=== PATIENT | male | born 1965 | race Caucasian/White ===

== ENCOUNTER 2024-09-01 09:11 | Emergency (ER) | payer OTHER, SELFPAY ==
[2024-09-01] VITALS (10 sets, daily range): BP systolic 142–176; BP diastolic 71–104; PULSE 87–110; RESP 12–29; TEMP 37.1; O2SAT 91–96; BMI 28.8
--- NOTE | 2024-09-01 09:21 | EKG_ITS ---
[address] [address] Test Date: 2024-09-01 Pat Name: Luis Celestin Department: Room: Gender: Male [employer] Mechanic: GEORGE : 1965 Requested By: Order Number: [id number] Reading MD: Junito Horowitz Measurements Intervals [place] Rate: 106 P: 80 RI: 146 QRS: -86 QRSD: 84 T: 76 QT: 330 QTc: 438 Interpretive Statements Sinus tachycardia Left axis deviation Pulmonary disease pattern Electronically Signed On 09-02-2024 7:20:38 PST by Junito Horowitz
--- NOTE | 2024-09-01 09:25 | DI.RAD.S_ITS ---
PROCEDURE: XR CHEST 1V INDICATIONS: dyspnea TECHNIQUE: One view of the chest was acquired. COMPARISON: None. FINDINGS AND IMPRESSION: No consolidation or pleural effusion on this single view study. Normal heart size. Possible small hernia projecting over the medial left hemidiaphragm. Degenerative osseous changes. Dictated by: Darian Francis M.D. on 09/01/2024 at 9:38 Approved by: Darian Francis M.D. on 09/01/2024 at 9:39
[2024-09-01] MEDS: ALBUTEROL/IPRATROPIUM 3 ML AMPUL INH (09:28)
[2024-09-01] MEDS: ALBUTEROL 2.5 MG/3 ML NEB (ADULT) INH ×2 (09:28→10:45)
[2024-09-01 09:39] LABS: Base Excess VBG 1.5 mmol/L (0-4); HCO3 VBG 29 mmol/L (24-28); Oxygen Saturation VBG 68 % (70-75); PCO2 VBG 53.3 mmHg (45-50); PO2 VBG 38 mmHg (35-45); Total CO2 VBG 28 mmol/L (24-29); pH VBG 7.34 (7.33-7.43)
[2024-09-01 09:41] LABS: Add Manual Diff / Slide Review NO; Basophils Absolute Auto 0 /uL (0-100); Basophils Percent Auto 0.6 % (0-2); Eosinophils Absolute Auto 0 /uL (0-450); Eosinophils Percent Auto 0.7 % (2-4); Hematocrit 46.5 % (41-53); Hemoglobin 15.8 g/dL (13.5-17.5); Lymphocytes Absolute Auto 800 /uL (1100-4500); Lymphocytes Percent Auto 18.1 % (25-40); Mean Corpuscular Hemoglobin 32.4 PG (26-34); Mean Corpuscular Volume 95.2 fL (80-100); Monocytes Absolute Auto 300 /uL (0-900); Neutrophils Absolute Auto 3400 /uL (1500-7000); Neutrophils Percent Auto 73.6 % (50-75); Platelet Count 125 X10^3/uL (150-400); Red Blood Cell Count 4.89 X10^6/uL (4.5-5.9); Red Cell Distribution Width 14.1 % (11.6-14.8); White Blood Cell Count 4.6 X10^3/uL (4.5-11.0)
[2024-09-01] MEDS: predniSONE 20 MG TABLET 60 MG PO (09:43)
[2024-09-01 09:48] LABS: Alanine Aminotransferase 105 IU/L (<50); Albumin 4.5 g/dL (3.5-5.0); Albumin Globulin Ratio 1.5 (1.0-2.8); Alkaline Phosphatase 80 U/L (38-126); Aspartate Aminotransferase 60 IU/L (17-59); BUN Creatinine Ratio 14.3 (6-22); Bilirubin Total 0.7 mg/dL (0.2-1.3); Blood Urea Nitrogen 11 mg/dL (9-20); Calcium 8.9 mg/dL (8.4-10.2); Carbon Dioxide 26 mmol/L (22-32); Chloride 99 mmol/L (98-107); Estimated Glomerular Filt Rate > 60 mL/min (>60); Globulin 3.1 g/dL (1.7-4.1); Glucose 229 mg/dL (80-110); HEMOLYSIS 17 (0-50); Potassium 4.1 mmol/L (3.4-5.1); Sodium 138 mmol/L (137-145); Total Protein 7.6 g/dL (6.3-8.2)
[2024-09-01 10:00] LABS: NT-proBNP (BNP-Adult 18+) 64 pg/mL (<125); Troponin I < 0.012 ng/mL (0.01-0.034)
--- NOTE | 2024-09-01 10:19 | ED.SOB ---
HPI - SOB/Dyspnea General Chief Complaint: Shortness of Breath/Dyspnea Stated Complaint: Shortness of Breath Time Seen by Provider: 09/01/24 09:19 Source: patient Mode of arrival: Wheelchair Limitations: no limitations History of Present Illness HPI Narrative: This 58-year-old male here with shortness of breath. He has been short of breath for 4 days getting progressively worse. He has what he describes as cramping? chest pain. He is not having fevers he has a cough with scant production of sputum. He has a history of COPD and usually has an albuterol inhaler, presently does not have access to it. [place] the [facility] [place] He has been without his regular medications as well. He has not noted any fevers. He denies any cardiac problems in the past. He has vague historian regarding his regular medications. The patient says that he has been hospitalized for breathing difficulties before but has never required intensive care unit care Related Data Previous Rx's Medication Instructions Recorded albuterol sulfate 90 mcg/actuation 2 puff inhalation Q6H PRN 09/01/24 aerosol inhaler shortness of breath or wheezing #8.5 grams prednisone 10 mg tablet 10 mg PO DIRECTED #20 tabs 09/01/24 Allergies Allergy/AdvReac Type Severity Reaction Status Date / Time bee venom protein (honey bee) Allergy Verified 09/01/24 09:42 Penicillins Allergy Verified 09/01/24 09:42 Patient History Social History Smoking Status: Former smoker Smoking Status: Former smoker Exam Narrative Exam Narrative: Alert appears dyspneic nontoxic speaking in full sentences Initial Vital Signs Initial Vital Signs: Vital Signs Temperature 98.8 F 09/01/24 09:12 Pulse Rate 106 H 09/01/24 09:12 Respiratory Rate 29 H 09/01/24 09:12 Blood Pressure 176/104 H 09/01/24 09:12 Pulse Oximetry 95 09/01/24 09:12 Oxygen Delivery Method Room Air 09/01/24 09:12 HENMT HENMT Other: Oral mucosa is moist no stridor Neck Other: No jugular venous distention Resp Other: Wheezing throughout, decreased air movement no rales Cardio Other: Regular rhythm rate no murmur or gallop Skin Other: Warm and dry Neuro Other: Alert and oriented Course Orders Ordered: ED Orders 09/01/24 09:21 EKG-12 Lead Routine 09/01/24 09:25 Chest [XR chest 1V] Stat BNP [NT-proBNP (BNP-Adult 18+)] Stat CBC Auto Diff [Complete Blood Count AUTO DIFF] Stat CMP [Comprehensive Metabolic Panel] Stat Trop I [Troponin I] Stat VBG [Venous Blood Gas] STAT 09/01/24 09:36 Respiratory Panel (Film Array) Stat Venous Blood Gas Routine Discontinued Medications Albuterol (Albuterol 2.5 Mg/3 Ml Neb (Adult)) 2.5 mg INH NOW ONE Stop: 09/01/24 09:26 Last Admin: 09/01/24 09:28 Dose: 2.5 mg Documented By: JESSICA Albuterol (Albuterol Hfa Prepack) 1 box MISC DIRECTED ONE Stop: 09/01/24 10:28 Last Admin: 09/01/24 10:43 Dose: Not Given Documented By: BISHNU Albuterol (Albuterol 2.5 Mg/3 Ml Neb (Adult)) 2.5 mg INH NOW ONE Stop: 09/01/24 10:42 Last Admin: 09/01/24 10:45 Dose: 2.5 mg Documented By: MARGARET Albuterol/Ipratropium (Albuterol/Ipratropium 3 Ml Ampul) 3 ml INH NOW ONE Stop: 09/01/24 09:26 Last Admin: 09/01/24 09:28 Dose: 3 ml Documented By: JESSICA Prednisone (Prednisone 20 Mg Tablet) 60 mg PO NOW ONE Stop: 09/01/24 09:26 Last Admin: 09/01/24 09:43 Dose: 60 mg Documented By: BISHNU Vital Signs Vital signs: Vital Signs - 8 hr 09/01/24 10:30 09/01/24 10:30 09/01/24 10:45 Pulse Rate 91 H 102 H Respiratory Rate 12 18 Blood Pressure 142/74 H Pulse Oximetry 94 93 Oxygen Delivery Method Room Air Room Air Oxygen Flow Rate 0 Fraction of Inspired Oxygen 21 09/01/24 11:00 09/01/24 11:00 Pulse Rate 87 Respiratory Rate 17 Blood Pressure 158/73 H Pulse Oximetry 93 Oxygen Delivery Method Room Air Oxygen Flow Rate Fraction of Inspired Oxygen MDM - SOB/Dyspnea Medical Records Medical records narrative: There were no old medical records to review Lab Data Lab results narrative: Normal troponin and BNP, CBC notable for mild thrombocytopenia 09/01/24 09:25 09/01/24 09:25 Labs: Lab Results 09/01/24 09/01/24 Range/Units 09:25 09:36 WBC 4.6 (4.5-11.0) X10^3/uL RBC 4.89 (4.5-5.9) X10^6/uL Hgb 15.8 (13.5-17.5) g/dL Hct 46.5 (41-53) % MCV 95.2 (80-100) fL MCH 32.4 (26-34) PG MCHC 34.0 (30-36) % RDW 14.1 (11.6-14.8) % Plt Count 125 L (150-400) X10^3/uL Neut % (Auto) 73.6 (50-75) % Lymph % (Auto) 18.1 L (25-40) % [place] % (Auto) 7.0 (3-14) % Eos % (Auto) 0.7 L (2-4) % Baso % (Auto) 0.6 (0-2) % Neut # (Auto) 3400 (4009-9459) /uL Lymph # (Auto) 800 L (8985-2198) /uL [place] # (Auto) 300 (0-900) /uL Eos # (Auto) 0 (0-450) /uL Baso # (Auto) 0 (0-100) /uL VBG pH 7.34 (7.33-7.43) VBG pCO2 53.3 H (45-50) mmHg VBG pO2 38 (35-45) mmHg VBG HCO3 29 H (24-28) mmol/L VBG Total CO2 28 (24-29) mmol/L VBG O2 Saturation 68 L (70-75) % VBG Base Excess 1.5 (0-4) mmol/L Sodium 138 (137-145) mmol/L Potassium 4.1 (3.4-5.1) mmol/L Chloride 99 (98-107) mmol/L Carbon Dioxide 26 (22-32) mmol/L BUN 11 (9-20) mg/dL Creatinine 0.77 (0.66-1.25) mg/dL Estimated GFR > 60 (>60) mL/min BUN/Creatinine Ratio 14.3 (6-22) Glucose 229 H (80-110) mg/dL Calcium 8.9 (8.4-10.2) mg/dL Total Bilirubin 0.7 (0.2-1.3) mg/dL AST 60 H (17-59) IU/L ALT 105 H (<50) IU/L Alkaline Phosphatase 80 (38-126) U/L Troponin I < 0.012 (0.01-0.034) ng/mL NT-Pro-B Natriuret Pep 64 (<125) pg/mL Total Protein 7.6 (6.3-8.2) g/dL Albumin 4.5 (3.5-5.0) g/dL Globulin 3.1 (1.7-4.1) g/dL Albumin/Globulin Ratio 1.5 (1.0-2.8) Chlamy pneumoniae PCR Not detected (Not Detect) Adenovirus (PCR) Not detected (Not Detect) B. pertussis DNA (PCR) Not detected (Not Detect) B.parapertussis DNA PCR Not detected (Not Detecte) Coronavirus OC43 (PCR) Not detected (Not Detect) Coronavirus HKU1 (PCR) Not detected (Not Detect) Coronavirus 229E (PCR) Not detected (Not Detect) SARS-CoV-2 (PCR) Not detected (Not Detecte) Coronavirus NL63 (PCR) Not detected (Not Detect) Human Metapneumovir PCR Not detected (Not Detect) Influenza Type A (PCR) Not detected (Not Detect) Influenza Type B (PCR) Not detected (Not Detect) M. pneumoniae (PCR) Not detected (Not Detect) Parainfluenza 1 (PCR) Not detected (Not Detect) Parainfluenza 2 (PCR) Not detected (Not Detect) Parainfluenza 3 (PCR) Not detected (Not Detect) Parainfluenza 4 (PCR) Not detected (Not Detect) RSV (PCR) Not detected (Not Detect) Entero/Rhino (PCR) Not detected (Not Detect) Imaging Data Chest x-ray: My Impression: Independent review of chest x-ray, no infiltrate no pneumothorax no heart failure Radiologist's Impression: [address] [place] [id number] XRay Report Signed Patient: Luis Celestin MR#: [id number] : 1965 Acct:[id number] Age/Sex: 58 / M Date of Service: 09/01/24 Loc: ED Accession Number: [id number] Procedure: XR chest 1V Ordering Provider: Froylan Leon MD PROCEDURE: XR CHEST 1V INDICATIONS: dyspnea TECHNIQUE: One view of the chest was acquired. COMPARISON: None. FINDINGS AND IMPRESSION: No consolidation or pleural effusion on this single view study. Normal heart size. Possible small hernia projecting over the medial left hemidiaphragm. Degenerative osseous changes. Dictated by: Darian Francis M.D. on 09/01/2024 at 9:38 ECG Data Interpretation: ECG shows sinus rhythm at [address] segment elevation poor R-wave progression possible old inferior infarct MDM Narrative Medical decision making narrative: 58-year-old male with a history of COPD presenting with shortness of breath. Differential diagnosis includes COPD exacerbation, pneumonia, pulmonary embolism and ischemic heart disease. Patient is wheezy improved with nebulized bronchodilators. Workup does not suggest heart failure no definite infiltrate on his chest x-ray. Started him on prednisone and provided a prescription for a rescue inhaler should he need 1 Discharge Plan Departure Patient Disposition: Home Clinical Impression: Acute exacerbation of chronic obstructive pulmonary disease (COPD) Activity Restrictions/Additional Instructions: Headache, retreated you for an exacerbation of your chronic obstructive pulmonary disease. I started you on steroids, start your prescription tomorrow as the 1st dose was given in the emergency department and take the tapering dose of prednisone as prescribed. We provided a spacer for use with an albuterol inhaler and a prescription for an albuterol inhaler. You can use 2 puffs every 4-6 hours as needed for shortness of breath. I recommend you continue previous home medications. Follow up soon with your primary care doctor return to the emergency department for increasing shortness of breath fevers chest pain or other acute symptoms Prescriptions: New prednisone 10 mg tablet 10 mg PO DIRECTED Qty: 20 0RF Rx Instructions: Take 5 tablets (50 mg) daily x2 days, then 4 tablets (40 mg) daily for 1 day, then 3 tablets (30 mg) for 1 day then 2 tablets (20 mg) for 1 day than 1 tablet for 1 day albuterol sulfate 90 mcg/actuation HFA aerosol inhaler 2 puff inhalation Q6H PRN (Reason: shortness of breath or wheezing) Qty: 8.5 0RF Stand Alone Forms: Patient Portal/API/Survey
[2024-09-01 10:37] LABS: Adenovirus Not Detected (Not Detect); B. parapertussis Not Detected (Not Detecte); Bordetella pertussis Not Detected (Not Detect); Chlamydophila pneumoniae Not Detected (Not Detect); Coronavirus 229E Not Detected (Not Detect); Coronavirus HKU1 Not Detected (Not Detect); Coronavirus NL 63 Not Detected (Not Detect); Coronavirus OC43 Not Detected (Not Detect); Human Metapneumovirus Not Detected (Not Detect); Human Rhinovirus/Enterovirus Not Detected (Not Detect); Influenza A Not Detected (Not Detect); Influenza B Not Detected (Not Detect); Mycoplasma pneumoniae Not Detected (Not Detect); Parainfluenza Virus 1 Not Detected (Not Detect); Parainfluenza Virus 2 Not Detected (Not Detect); Parainfluenza Virus 3 Not Detected (Not Detect); Parainfluenza Virus 4 Not Detected (Not Detect); Respiratory Syncytial Virus Not Detected (Not Detect); SARS- CoV-2 Not Detected (Not Detecte)
== END 2024-09-01 11:46 | disposition home or self-care (01) ==
PROVIDERS: Emergency Provider Emergency Medicine
DX: J44.1 Chronic obstructive pulmonary disease with (acute) exacerbation (principal); R07.89 Other chest pain; Z79.52 Long term (current) use of systemic steroids; Z87.891 Personal history of nicotine dependence
CPT/HCPCS: 36415; 71045; 80053; 82805; 83880; 84484; 85025; 87633; 93005; 94640; 99284; 99285; J7613

== ENCOUNTER → 2024-10-31 11:05 | Outpatient (ROUT) | payer OTHER, SELFPAY ==
[2024-10-31 11:13] LABS: Prothrombin Time 11.6 SECONDS (9.4-12.5)
[2024-10-31 11:15] LABS: PTT Partial Thromboplastin Tim 38 SECONDS (25.1-36.5)
== END ==
LOC: LAB 11:05
PROVIDERS: Visit Provider Family Medicine
DX: Z76.89 Persons encountering health services in other specified circumstances (principal)
CPT/HCPCS: 85610; 85730

== ENCOUNTER 2025-01-17 08:43 | Day surgery (SDC) | payer OTHER, MEDICAID, SELFPAY ==
[2025-01-09 14:47] VITALS: BMI 27.8
--- NOTE | 2025-01-17 09:32 | SUR.PREOP ---
Patient states that he had chest tightness about five days ago and it happens when he overexerts himself. Patient states that he was seen in [place] about two weeks ago due to Something with my heart; states that he was diagnosed with walking pneumonia and given antibiotics and a steroid shot. EKG ordered and being performed by INTENSIVE CARE UNIT NURSE at bedside. Notified anesthesia provider of circumstances and conversation.
--- NOTE | 2025-01-17 09:38 | EKG_ITS ---
[address] [address] Test Date: 2025-01-17 Pat Name: Luis Celestin Department: Room: Gender: Male Engagement Manager: Watson Paulino : 1965 Requested By: Order Number: [id number] Reading MD: Franck Hathaway MD Measurements Intervals [place] Rate: 70 P: 73 MI: 152 QRS: -8 QRSD: 82 T: 57 QT: 396 QTc: 427 Interpretive Statements Sinus rhythm with occasional premature ventricular complexes Electronically Signed On 01-17-2025 12:16:15 PDT by Franck Hathaway MD
--- NOTE | 2025-01-17 09:53 | SUR.PREOP ---
After assessment by Dr Bernabe, decision made to cancel surgery due to recent SOB and chest pain; Dr Torres notified and events explained to patient.
== END 2025-01-17 08:45 | disposition home or self-care (01) ==
LOC: OR 08:45
PROVIDERS: PCP Family Medicine; Referring Provider Surgery; Visit Provider Surgery
DX: K42.9 Umbilical hernia without obstruction or gangrene (principal); Z53.09 Procedure and treatment not carried out because of other contraindication; R07.9 Chest pain, unspecified; R06.02 Shortness of breath
CPT/HCPCS: 49591; 93005; 93010; J0330; J2405; J2704; J3010

== ENCOUNTER → 2025-01-21 11:43 | Outpatient (CLI) | payer OTHER, MEDICAID, SELFPAY ==
--- NOTE | 2025-01-21 11:46 | DI.RAD.S_ITS ---
PROCEDURE: XR CHEST 2V INDICATIONS: History of Pnuemonia TECHNIQUE: 2 views of the chest were acquired. COMPARISON: [facility], CR, XR CHEST 1V, 09/01/2024, 9:26. FINDINGS: Heart, mediastinum and pulmonary vascular: Heart is normal in size and configuration. Mediastinum is unremarkable. Pulmonary vascular is normal. Lungs: Minor scattered bibasilar airspace disease likely atelectasis. No definite infiltrates Pleural spaces: Normal-no effusions or pneumothorax. Bones and soft tissues: Normal IMPRESSION: Minor bibasilar atelectasis Dictated by: Franck Lizama M.D. on 01/22/2025 at 11:32 Approved by: Franck Lizama M.D. on 01/22/2025 at 11:33
== END ==
PROVIDERS: PCP Family Medicine; Referring Provider Family Medicine; Visit Provider Family Medicine
DX: Z87.01 Personal history of pneumonia (recurrent) (principal); J98.11 Atelectasis
CPT/HCPCS: 71046